=== PATIENT | female | born 1955 | race Caucasian/White ===

== ENCOUNTER 2017-03-28 04:41 | Emergency (ER) | payer OTHER ==
[2017-03-28 04:48] VITALS: RESP 16; TEMP 97.7
[2017-03-28] MEDS ORDERED: methylPREDNISolone SOD SUCC 125 MG/2 ML VIAL IVP ONE (05:12)
[2017-03-28] MEDS ORDERED: FAMOTIDINE 20 MG/2 ML SDV IVP ONE (05:13)
--- NOTE | 2017-03-28 05:29 | EDPHY ---
H & P Stated Complaint: Swelling to L face, lips and tongue since midnight. Source: Patient Exam Limitations: No limitations - Personal History Current Tetanus/Diphtheria Vaccine: Unsure Current Tetanus Diphtheria and Acellular Pertussis (TDAP): Unsure - Medical/Surgical History Hx Asthma: No Hx Chronic Respiratory Disease: No Hx Diabetes: No Hx Cardiac Disease: No Hx Renal Disease: No Hx Cirrhosis: No Hx Alcoholism: No Hx HIV/AIDS: No Hx Splenectomy or Spleen Trauma: No Other PMH: ORIF R ankle, bilateral claw toe surgery, L4-5 fusion, HTN, high cholesterol, HRT. - Social History Smoking Status: Never smoked Time Seen by Provider: 03/28/17 05:02 HPI/ROS: HPI The patient presents with lip, left cheek, tongue swelling which has been present since about midnight last night. It started slowly and began in her lip , then spread to her cheek. She went to bed, however awoke with increased swelling of her tongue. She notices some soreness when she swallows though is able to tolerate her secretions without difficulty. Since arriving in the emergency department, she has a mild cough. She has no prior history of similar , she has no rash, vomiting, dizziness. She is on fosinopril for many years. She did take ibuprofen at 10:00 p.m. last night. She has no family history of angioedema. REVIEW OF SYSTEMS Constitutional: No fever, no chills. Eyes: No discharge. ENT: No sore throat. Cardiovascular: No chest pain, no palpitations. Respiratory: No cough, no shortness of breath. Gastrointestinal: No abdominal pain, no vomiting. Genitourinary: No hematuria. Musculoskeletal: No back pain. Skin: No rashes. Neurological: No headache. PMHx: Hypertension Soc Hx: Housed PHYSICAL General Appearance: Alert, no distress Eyes: Pupils equal and round no pallor or injection ENT, Mouth: Lower lip is diffusely edematous, there is fullness of the submandibular region, the left cheek is edematous, the left half of the tongue is edematous, the uvula is midline, there is no posterior pharyngeal erythema or edema, there is no stridor, Mucous membranes moist Respiratory: Breathing comfortably, no retractions, lungs are clear to auscultation Neurological: A&O, moves all extremities Skin: Warm and dry, no rashes Musculoskeletal: Neck is supple non tender Extremities: symmetrical, full range of motion Psychiatric: Patient is oriented X 3, there is no agitation (Liza Cowart) Constitutional: Initial Vital Signs Temperature (C) 36.5 C 03/28/17 04:43 Heart Rate 72 03/28/17 04:43 Respiratory Rate 16 03/28/17 04:43 Blood Pressure 155/90 H 03/28/17 04:43 O2 Sat (%) 94 03/28/17 04:43 O2 Delivery Mode Room Air Allergies/Adverse Reactions: No Known Allergies Allergy (Unverified 03/28/17 04:47) Home Medications: Medication Instructions Recorded Fosinopril Sodium 03/28/17 Rapatha-Cholesterol 03/28/17 diphenhydrAMINE [Benadryl 25 MG 25 mg PO BID #6 tab 03/28/17 (*)] predniSONE 50 mg PO DAILY #3 tablet 03/28/17 Medical Decision Making ED Course/Re-evaluation: 914: On re-evaluation at this time. Patient resting comfortably. I did re- evaluate her for angioedema of her oropharynx. She reports to me she feels much better. She denies any significant swelling. Denies trouble swelling. Denies increasing and swelling. She would like to go home. She has been monitored here for over 4 hours. I will placed on Benadryl and prednisone for the next 3 days. I did give her strict return precautions. She understands return immediately to the emergency room developed worsening or oropharyngeal swelling or trouble swallowing. She understands to stop taking and since then MATT-inhibitor. Given her primary care doctor. She understands return if worsening symptoms questions or concerns (Jaswinder Do) Differential Diagnosis: A 62-year-old female with hypertension on MATT-inhibitor for many years, also with NSAID use, no family history, presents with lip, cheek, tongue swelling which has been progressive over the last 5 hours with no prior history of similar. On exam, she does have unilateral tongue edema without any posterior pharyngeal involvement. She does not have any difficulty tolerating secretions or any respiratory distress or stridor. Differential diagnosis includes angioedema related to the MATT-inhibitor use, NSAID use, anaphylaxis, less likely cellulitis. In the emergency department, patient was given Pepcid and Solu-Medrol IV. Benadryl was held as the patient had administered 50 mg by mouth at 2:00 a.m.. She was monitored closely and had no progression of her symptoms. At 7:00 a.m., the case was signed out to the oncoming provider Dr. Do. Anticipate the patient will likely be able to go home and the next 2 hours if her symptoms do not progress. She is feeling better, however continues to have tongue edema. If her symptoms worsen in any way, she will likely require admission for observation. I have advised her to discontinue ibuprofen and her MATT-inhibitor. She is to follow up with her regular doctor to obtain other medication for blood pressure control. (Liza Cowart) - Data Points Medications Given: Discontinued Medications Diphenhydramine HCl (Benadryl Injection) 25 mg IVP EDNOW ONE Stop: 03/28/17 07:09 Last Admin: 03/28/17 07:20 Dose: 25 mg Famotidine (Pepcid) 20 mg IVP EDNOW ONE Stop: 03/28/17 05:14 Last Admin: 03/28/17 05:24 Dose: 20 mg Methylprednisolone Sodium Succinate (Solu-Medrol) 125 mg IVP EDNOW ONE Stop: 03/28/17 05:13 Last Admin: 03/28/17 05:24 Dose: 125 mg Departure - Departure Disposition: Home, Routine, Self-Care Clinical Impression: Angioedema Qualifiers: Encounter type: initial encounter Qualified Code(s): T78.3XXA - Angioneurotic edema, initial encounter Condition: Good Instructions: Angioedema (ED) Additional Instructions: Please stop taking ibuprofen and your fosinopril. These medications could be responsible for your symptoms. You should follow up with your regular doctor in the next few days as you will likely need to start a new medication for your blood pressure. Please return to the emergency room if you have any difficulty swallowing, speaking, or worse in any way. Referrals: YOUSIF THOMAS [Other] - As per Instructions Prescriptions: diphenhydrAMINE [Benadryl 25 MG (*)] 25 mg PO BID #6 tab predniSONE 50 mg PO DAILY #3 tablet
[2017-03-28 09:29] VITALS: BP 155/94; PULSE 70; O2SAT 94
== END 2017-03-28 09:28 | disposition home or self-care (01) ==
DX: T78.3XXA Angioneurotic edema, initial encounter (principal); I10 Essential (primary) hypertension
CPT/HCPCS: 96374; J1200